=== PATIENT | female | born 1965 | race Caucasian/White ===

== ENCOUNTER 2020-08-23 19:02 | Emergency (ER) | payer OTHER, SELFPAY ==
[2020-08-23 19:24] VITALS: BP 152/74; PULSE 83; RESP 20; TEMP 36.8; O2SAT 100
--- NOTE | 2020-08-23 19:24 | ED.EAR ---
HPI - Ear Problem General Chief complaint: Ear Stated complaint: Earring Hook stuck in Ear Time Seen by Provider: 08/23/20 19:24 Source: patient Mode of arrival: ambulatory Limitations: no limitations History of Present Illness HPI Narrative: Jo Ricketts is a 54 yo female with no PMH who comes to express care for possible earring post and right ear after having a change to the tattoo parlor. This occurred just prior to arrival. Related Data Home Medications Medication Instructions Recorded Confirmed citalopram [Celexa] 10 mg PO DAILY 08/23/20 08/23/20 fexofenadine [Lidia Allergy] 60 mg PO Q12H 08/23/20 08/23/20 Allergies Allergy/AdvReac Type Severity Reaction Status Date / Time No Known Allergies Allergy Verified 08/23/20 19:22 Review of Systems Review of Systems: Narrative: CONSTITUTIONAL: Denies fever, chills, sweats. EYES: Denies visual changes, redness, discharge. ENT: Denies rhinorrhea, congestion, sore throat, otalgia. Foreign object right ear CARDIOVASCULAR: Denies chest pain, palpitations, edema. RESPIRATORY: Denies dyspnea, wheezing, cough GASTROINTESTINAL: Denies abdominal pain, nausea, vomiting, diarrhea. GENITOURINARY: Denies dysuria, hematuria, abnormal discharge SKIN: Denies rash or itching. NEUROLOGIC: Denies numbness, or focal weakness. PSYCHIATRIC: Denies anxiety or depression. PMFSH Past Medical History Medical History No acute medical problems Family History Family History Other No acute medical problems Social History Social History (Updated 08/23/20 @ 19:42 by Sharifa Fields CNP) Smoking status: Never smoker Alcohol intake: current Comments At time of signature, I agree with nursing past medical, surgical, social and family history. There is no relevant family history pertinent to the presenting complaint. Blood pressure elevated to follow-up with primary care physician this week Exam Narrative: Exam Narrative: GENERAL: This is a well-nourished, well-developed patient, in mild distress. HEAD: normocephalic, atraumatic. EYES: Sclera clear/white. Vision is grossly intact. EARS: External ears normal, R auditory canal has abrasions on posterior and anterior side, TMs normal without perforation. Hearing grossly intact. NOSE: External nose normal without nasal discharge, nares without redness, no rhinorrhea. THROAT: Mucous membranes moist, posterior pharynx NECK: Neck supple, non-tender CARDIOVASCULAR: Regular rate and rhythm without murmurs, gallops, or rubs. RESPIRATORY: Clear to auscultation. Breath sounds equal bilaterally. No wheezes, rales, or rhonchi. GASTROINTESTINAL: Abdomen soft, non-tender, SKIN: warm, intact with no suspicious lesions or rash, good texture and turgor. NEURO: awake, alert, and oriented to person, place and time. There were no obvious focal neurologic abnormalities. Steady gait EXTREMITIES: Normal range of motion. BACK: Nontender without deformity Course Course Emergency Course: Patient here due to urine post being dropped and near the tattoo parlor attempted to flush object out without success Started on antibiotic drops Vital Signs Vital signs: Vital Signs Temperature 98.2 F 08/23/20 19:24 Pulse Rate 83 08/23/20 19:24 Respiratory Rate 20 08/23/20 19:24 Blood Pressure 152/74 H 08/23/20 19:24 Pulse Oximetry 100 08/23/20 19:24 Temperature 98.2 F 08/23/20 19:24 Pulse Rate 83 08/23/20 19:24 Respiratory Rate 20 08/23/20 19:24 Blood Pressure 152/74 H 08/23/20 19:24 Pulse Oximetry 100 08/23/20 19:24 Procedures FB Removal Ear Foreign Body #1: Foreign Body Removal Date: 08/23/20 Foreign Body Removal Time: 19:44 Foreign Body Suspected: other TM intact pre-procedure: yes Foreign Body Removed: no Foreign Body Removal Technique: irrigation Tympa
== END 2020-08-23 20:00 | disposition home or self-care (01) ==
PROVIDERS: Emergency Provider Nurse Practitioner; PCP Family Medicine
DX: S00.411A Abrasion of right ear, initial encounter (principal); X58.XXXA Exposure to other specified factors, initial encounter; F32.9 Major depressive disorder, single episode, unspecified
CPT/HCPCS: 99213; G0463